=== PATIENT | female | born 1995 | race Caucasian/White ===

== ENCOUNTER 2016-09-25 21:42 | Emergency (ER) | payer SELFPAY ==
[~2016-09-25] VITALS: Ht 170.1 cm; Wt 63.5 kg
[~2016-09-25 21:42] MED LIST: ANAPROX DS550 MG PO; Motrin,Rufen800 MG PO; Orphenadrine C100 MG PO
[2016-09-25] MEDS ORDERED: 'PARAFON FORTE500 M1 PO (22:11)
[2016-09-25] MEDS ORDERED: NAPROSYN500 MG PO (22:11)
== END 2016-09-25 23:59 | disposition home or self-care (01) ==
LOC: ED 21:42
DX: S16.1XXA Strain of muscle, fascia and tendon at neck level, initial encounter (principal); S00.03XA Contusion of scalp, initial encounter; R03.0 Elevated blood-pressure reading, without diagnosis of hypertension; F17.200 Nicotine dependence, unspecified, uncomplicated; W22.03XA Walked into furniture, initial encounter; Y93.89 Activity, other specified; Y92.511 Restaurant or cafe as the place of occurrence of the external cause; Y99.9 Unspecified external cause status

== ENCOUNTER 2017-11-08 20:04 | Emergency (ER) | payer OTHER ==
[~2017-11-08] VITALS: Ht 170.1 cm; Wt 68.0 kg
[~2017-11-08 20:04] MED LIST changes: +'PARAFON FORTE500 M1 PO; +NAPROSYN500 MG PO
== END 2017-11-08 21:40 | disposition home or self-care (01) ==
LOC: ED 20:04
DX: S01.81XA Laceration without foreign body of other part of head, initial encounter (principal); F17.200 Nicotine dependence, unspecified, uncomplicated; W22.8XXA Striking against or struck by other objects, initial encounter; Y93.89 Activity, other specified; Y92.89 Other specified places as the place of occurrence of the external cause; Y99.9 Unspecified external cause status

== ENCOUNTER 2017-11-17 19:19 | Emergency (ER) | payer OTHER ==
[~2017-11-17] VITALS: Ht 170.1 cm; Wt 68.0 kg
== END 2017-11-17 19:38 | disposition home or self-care (01) ==
LOC: ED 19:19
DX: S01.111D Laceration without foreign body of right eyelid and periocular area, subsequent encounter (principal); W45.8XXD Other foreign body or object entering through skin, subsequent encounter

== ENCOUNTER → 2018-12-24 | Outpatient (CLI) | payer OTHER | END | disposition home or self-care (01) | LOC: RAD 13:24 | DX: Z02.1 Encounter for pre-employment examination (principal) ==

== ENCOUNTER 2019-02-25 16:57 | Emergency (ER) | payer SELFPAY ==
[~2019-02-25] VITALS: Ht 170.1 cm; Wt 72.6 kg
[2019-02-25] MEDS ORDERED: PREDNISONE50 MG PO (18:35)
== END 2019-02-25 18:38 | disposition home or self-care (01) ==
LOC: ED 16:57
DX: J45.901 Unspecified asthma with (acute) exacerbation (principal); R42 Dizziness and giddiness; R10.9 Unspecified abdominal pain; R19.7 Diarrhea, unspecified; R20.2 Paresthesia of skin; F17.210 Nicotine dependence, cigarettes, uncomplicated

== ENCOUNTER 2019-04-11 20:51 | Emergency (ER) | payer SELFPAY ==
[~2019-04-11] VITALS: Ht 170.1 cm; Wt 72.6 kg
[~2019-04-11 20:51] MED LIST changes: +PREDNISONE50 MG PO
[2019-04-11] MEDS ORDERED: MEDROL DOSEPAK4 MG PO (22:37)
== END 2019-04-11 22:32 | disposition home or self-care (01) ==
LOC: ED 20:51
DX: M54.16 Radiculopathy, lumbar region (principal)

== ENCOUNTER 2019-10-29 18:23 | Emergency (ER) | payer OTHER ==
[~2019-10-29] VITALS: Ht 170.1 cm; Wt 70.3 kg
[~2019-10-29 18:23] MED LIST changes: +MEDROL DOSEPAK4 MG PO
[2019-10-29] MEDS ORDERED: CYCLOBENZAPRINE5 M3 PO (20:22)
== END 2019-10-29 20:30 | disposition home or self-care (01) ==
LOC: ED 18:23
DX: S20.219A Contusion of unspecified front wall of thorax, initial encounter (principal); J45.909 Unspecified asthma, uncomplicated; V89.2XXA Person injured in unspecified motor-vehicle accident, traffic, initial encounter; Y93.89 Activity, other specified; Y92.89 Other specified places as the place of occurrence of the external cause; Y99.8 Other external cause status

== ENCOUNTER 2020-05-08 20:25 | Emergency (ER) | payer OTHER ==
[~2020-05-08] VITALS: Ht 170.1 cm; Wt 70.3 kg
[~2020-05-08 20:25] MED LIST changes: +CYCLOBENZAPRINE5 M3 PO
[2020-05-08] MEDS ORDERED: NAPROXEN250 MG PO (21:19)
[2020-05-08] MEDS ORDERED: ROBAXIN-750750 MG PO (21:19)
== END 2020-05-08 21:44 | disposition home or self-care (01) ==
LOC: ED 20:25
DX: S39.012A Strain of muscle, fascia and tendon of lower back, initial encounter (principal); Z79.899 Other long term (current) drug therapy; X58.XXXA Exposure to other specified factors, initial encounter; Y93.89 Activity, other specified; Y92.89 Other specified places as the place of occurrence of the external cause; Y99.8 Other external cause status

== ENCOUNTER → 2020-05-16 | Outpatient (CLI) | payer OTHER ==
[~2020-05-16] MED LIST changes: +NAPROXEN250 MG PO; +ROBAXIN-750750 MG PO
== END | disposition home or self-care (01) ==
LOC: COVID19 14:45
PROVIDERS: ATTEND Student in an Organized Health Care Education/Training Program
DX: Z20.828 Contact with and (suspected) exposure to other viral communicable diseases (principal)

== ENCOUNTER 2020-07-23 15:26 | Emergency (ER) | payer OTHER ==
[~2020-07-23] VITALS: Wt 68.0 kg
[2020-07-23] MEDS ORDERED: AUGMENTIN 875875 MG PO (16:54)
== END 2020-07-23 17:00 | disposition home or self-care (01) ==
LOC: ED 15:26
DX: S61.250A Open bite of right index finger without damage to nail, initial encounter (principal); S61.253A Open bite of left middle finger without damage to nail, initial encounter; S61.254A Open bite of right ring finger without damage to nail, initial encounter; J45.909 Unspecified asthma, uncomplicated; F17.200 Nicotine dependence, unspecified, uncomplicated; Z79.899 Other long term (current) drug therapy; W54.0XXA Bitten by dog, initial encounter; Y93.89 Activity, other specified; Y92.89 Other specified places as the place of occurrence of the external cause; Y99.8 Other external cause status

== ENCOUNTER → 2021-05-10 | Outpatient (CLI) | payer OTHER ==
[~2021-05-10] MED LIST changes: +AUGMENTIN 875875 MG PO
== END | disposition home or self-care (01) ==
LOC: COVID19 16:37
PROVIDERS: ATTEND Internal Medicine
DX: U07.1 COVID-19 (principal)

== ENCOUNTER 2022-04-02 20:04 | Emergency (ER) | payer SELFPAY ==
[~2022-04-02] VITALS: Ht 170.1 cm; Wt 68.0 kg
[2022-04-02 21:14] LABS: BASO % 0.5 % (0.0-1.0); EOS # 0.1 10*3/uL (0.0-0.4); EOS % 0.7 % (1.0-4.0); HEMATOCRIT 33.7 % (37.0-47.0); LYMPH # 1.8 10*3/uL (1.3-4.4); LYMPH % 21.7 % (27.0-41.0); MEAN CELL VOLUME 89.6 fl (81.0-99.0); MEAN CORPUSCULAR HGB 31.6 pg (27.0-31.0); MEAN CORPUSCULAR HGB CONC 35.3 g/dl (33.0-37.0); MEAN PLATELET VOLUME 10.3 fl (9.6-12.3); MONO # 0.6 10*3/uL (0.1-1.0); MONO % 6.7 % (3.0-9.0); NEUT # 5.8 10*3/uL (2.3-7.9); PLATELET COUNT AUTOMATED 249 10*3/uL (130-400); RED BLOOD COUNT 3.76 10*6/uL (4.10-5.10); RED CELL DISTRI WIDTH 11.9 % (0-14.5); WHITE BLOOD COUNT 8.3 10*3/uL (4.8-10.8)
[2022-04-02 21:30] LABS: ALKALINE PHOSPHATASE 59 U/L (45-117); BUN 16 mg/dl (7-24); CHLORIDE 111 mmol/L (98-107); CREATININE 0.78 mg/dL (0.55-1.02); POTASSIUM 3.9 mmol/L (3.5-5.1); SGPT/ALT 21 U/L (12-78); SODIUM 141 mmol/L (136-145)
[2022-04-02 21:38] LABS: THYROID STIM HORMONE (HS) 0.794 uIU/ml (0.358-4.75)
[2022-04-02] MEDS ORDERED: ATIVAN1 MG PO (21:46)
== END 2022-04-02 22:15 | disposition home or self-care (01) ==
LOC: ED 20:04
PROVIDERS: Nurse Practitioner Family
DX: F41.9 Anxiety disorder, unspecified (principal)

== ENCOUNTER 2023-03-21 17:18 | Emergency (ER) | payer SELFPAY ==
[~2023-03-21] VITALS: Ht 170.1 cm; Wt 68.0 kg
[~2023-03-21 17:18] MED LIST changes: +ATIVAN1 MG PO
[2023-03-21] MEDS ORDERED: CYCLOBENZAPRINE5 M3 PO (20:23)
== END 2023-03-21 20:40 | disposition home or self-care (01) ==
LOC: ED 17:18
DX: M54.41 Lumbago with sciatica, right side (principal); J45.909 Unspecified asthma, uncomplicated